=== PATIENT | male | born 1995 | race Caucasian/White ===

== ENCOUNTER 2017-12-08 18:25 | Emergency (ER) | payer OTHER ==
[~2017-12-08] VITALS: Ht 182.9 cm; Wt 81.1 kg
[~2017-12-08 18:25] MED LIST: AMPH20CA3 PO; SERT25TA PO
[2017-12-08 18:28] VITALS: TEMP 36.8; Ht 182.9 cm; Wt 81.1 kg
[2017-12-08] MEDS ORDERED: ACETAMINOPHEN 500 MG TAB PO STA (18:56)
[2017-12-08] MEDS ORDERED: KETOROLAC TROMETHAMINE 60 MG/2 ML VIAL IM ONE (19:00)
[2017-12-08] MEDS ORDERED: SERT-234 PO (19:01)
[2017-12-08] MEDS ORDERED: AMPH30CA3 PO (19:01)
--- NOTE | 2017-12-08 19:07 | EMERGENCY ROOM VISIT NOTE ---
History First contact with patient: 18:38 Chief Complaint: BACK PAIN Stated Complaint: LOWER BACK PAIN- History of Present Illness The patient is a 22 year old male who presents to the Emergency Room with complaints of low back pain radiated down his legs right greater than left since yesterday. The patient was lifting a heavy object at work with a twisting motion when he felt intense pain in his back. The pain has been persistent since. He denies any history of back problems. He has tried ibuprofen with minimal relief of his symptoms. He denies any urinary or bowel incontinence. No saddle paresthesias. No numbness, tingling or weakness in the legs. He denies any other injuries. Review of Systems 6 system review negative. Please see pertinent positives in the history of present illness section. Past Medical/Surgical History Depression, bipolar disorder Social History Smoking Status: Current Every Day Smoker Drug Use: none Marital Status: single Housing Status: lives with family Occupation Status: employed Current/Historical Medications Scheduled Amphetamine-Dextroamphetamine 30MG (Adderall Xr 30MG), 30 MG PO DAILY Cyclobenzaprine Hcl (Flexeril), 10 MG PO TID Methylprednisolone (Medrol Dosepak), 0 PO DAILY Sertraline (Zoloft), 150 MG PO DAILY Scheduled PRN Hydrocodone/Acetaminophen 5MG/325MG ([place] 5MG/325MG), 1-2 TABLET PO Q4H PRN for Pain Physical Exam Vital Signs Date Time Temp Pulse Resp B/P (MAP) Pulse Ox O2 Delivery O2 Flow Rate FiO2 12/08/17 20:44 81 18 133/81 99 12/08/17 19:40 101 20 147/77 100 Room Air 12/08/17 18:28 36.8 119 17 138/78 98 Room Air Physical Exam VITALS: Vitals are noted on the nurse's note and reviewed by myself. Vital signs stable. GENERAL: 22-year-old male, in moderate discomfort, SKIN: The skin was without rashes, erythema, edema, or bruising. HEAD: Normocephalic atraumatic. NECK: Supple without nuchal rigidity. . Cervical spine is nontender. HEART: Regular rate and rhythm without murmurs gallops or rubs. LUNGS: Clear to auscultation bilaterally without wheezes, rales or rhonchi. No accessory muscle use. MUSCULOSKELETAL: Mild tenderness over the lumbar spinous processes. Tenderness over the SI joints bilaterally. Muscle spasm noted at the right paraspinous muscle in the lumbar area. Negative straight leg test bilaterally. Sensation in the lower extremities is intact. NEURO: Patient was alert and oriented to person place and time. Normal sensation to touch. No focal neurological deficits. Medical Decision & Procedures ER Provider Diagnostic Interpretation: Lumbar spine films IMPRESSION: Unremarkable lumbar spine radiographs. Electronically signed by: Baltazar Mackenzie M.D. 12/08/2017 7:30 PM Dictated Date/Time: 12/08/2017 7:26 PM The status of this report is Signed. Draft = Not yet reviewed or approved by Radiologist. Signed = Reviewed and approved by Radiologist. <AttendingPhy></AttendingPhy> <FamilyPhy>No Doctor, Assigned</FamilyPhy> < PrimaryPhy>No Doctor, Assigned</PrimaryPhy> <UnitNumber>[id number]</UnitNumber> <VisitNumber>[id number]</VisitNumber> <PatientName> Medications Administered Medications (Trade) Dose Ordered Sig/Nj Route Start Time Stop Time Status Last Admin Dose Admin Acetaminophen (Tylenol Tab) 1,000 mg NOW STAT PO 12/08/17 18:56 12/08/17 18:58 DC 12/08/17 19:39 1,000 MG Acetaminophen/ Hydrocodone Bitart ([place]emo 5/325mg Home Pack) 1 homepack UD ONCE PO 12/08/17 20:30 12/08/17 20:31 DC 12/08/17 20:41 1 HOMEPACK ED Course The patient was seen and examined He was medicated with Tylenol and Motrin Imaging was performed and reviewed Upon her evaluation, the patient was resting comfortably. We discussed the results of his workup. He voiced understanding, and was comfortable being discharged home. Discharge instructions were reviewed, and he was discharged in good condition Medical Decision Differential diagnosis: Spine fracture, ligamentous injury, subluxation, spondylolisthesis, spondylosis, herniated disc, contusion, muscle spasm This patient is a 22-year-old male that presents to emergency department with low back pain radiating down his right greater than left leg since yesterday. The injury occurred at work with a twisting motion while lifting a heavy object. On exam, he mild tenderness over the lumbar spinous processes and SI joint bilaterally. He is neurovascularly intact. I do not suspect cauda equina syndrome. Imaging was unremarkable. I believe he would benefit from a short course of narcotics, steroids and muscle relaxants. He was also given a few days off of work to rest. The patient seemed comfortable with this plan. He was encouraged to follow up with either his primary care physician or employee health within the next 3-5 days for recheck. He agrees to return to the emergency department with any new, worsening or concerning symptoms. This chart was completed in part utilizing [employer] Speech Voice Recognition software. Attempts were made to minimize the grammatical errors, random word insertions, pronoun errors and incomplete sentences. Any formal questions or concerns about the content, text or information contained within the body of this dictation should be directly addressed to the provider for clarification. Medication Reconcilliation Current Medication List: was personally reviewed by me Blood Pressure Screening Patient's blood pressure: Normal blood pressure Impression Primary Impression: Low back pain Departure Information Dispostion Home / Self-Care Condition GOOD Prescriptions Methylprednisolone (MEDROL DOSEPAK) 4 Mg Brennon 0 PO DAILY, #1 PKT Prov: Jerica Mckeon PA-C 12/08/17 Cyclobenzaprine Hcl (FLEXERIL) 10 Mg Tab 10 MG PO TID for Muscle Spasms, #20 TAB Prov: Jerica Mckeon PA-C 12/08/17 Hydrocodone/Acetaminophen 5MG/325MG (Onemo 5MG/325MG) Tab 1-2 TABLET PO Q4H Y for Pain, #15 TAB For Initial Treatment Prov: Jerica Mckeon PA-C 12/08/17 Referrals No Doctor, Assigned (PCP) Patient Instructions ED Low Back Pain Injury, My [facility] Additional Instructions Please rest for at least the next 2-3 days. No strenuous activity or lifting. Take the entire course of steroids. Ibuprofen 600 mg every 6 hours as needed for pain. Onemo 1-2 tabs every 4 hours for severe pain. Do not drink alcohol or drive while taking this medication. This may be taken with ibuprofen, but avoid Tylenol. Flexeril every 8 hours as needed for muscle spasms. Please do not drink alcohol or drive or taking this medication. Ice over the lower back over the next 48 hours. Lying on a hard surface may help with the pain. Return to the emergency department if you have any of the following symptoms: -Problems with urination -Weakness in your legs -Chest pain -Shortness of breath -Worsening pain Please follow-up with your primary care physician next 2-3 days. Work Instructions Return To Work: 2 days
--- NOTE | 2017-12-08 19:32 | DIAGNOSTIC IMAGING REPORT ---
L-SPINE MIN 4 VIEWS ROUTINE CLINICAL HISTORY: low back pain down R>L leg COMPARISON: None FINDINGS: Alignment of the lumbar spine is anatomic. Vertebral body heights are maintained. There is no fracture or suspicious osseous lesion. The disc spaces are preserved. Sacroiliac joints are intact. Bowel gas pattern is normal. IMPRESSION: Unremarkable lumbar spine radiographs. Electronically signed by: Baltazar Mackenzie M.D. 12/08/2017 7:30 PM Dictated Date/Time: 12/08/2017 7:26 PM
[2017-12-08] MEDS ORDERED: CYCL10TA6 PO (20:28)
[2017-12-08] MEDS ORDERED: HYDR-5688 PO (20:28)
[2017-12-08] MEDS ORDERED: METH4PAK PO (20:28)
[2017-12-08] MEDS ORDERED: NORCO 5/325MG HOME PACK PO ONE (20:30)
[2017-12-08 20:44] VITALS: BP 133/81; PULSE 81; O2SAT 99
== END 2017-12-08 20:45 | disposition home or self-care (01) ==
LOC: C.EDB 18:28 → C.EDD 20:45
DX: M54.5 Low back pain (principal); X50.0XXA Overexertion from strenuous movement or load, initial encounter; Y99.0 Civilian activity done for income or pay; F32.9 Major depressive disorder, single episode, unspecified; F31.9 Bipolar disorder, unspecified; F17.200 Nicotine dependence, unspecified, uncomplicated

== ENCOUNTER 2017-12-19 00:28 | Emergency (ER) | payer OTHER ==
[~2017-12-19] VITALS: Ht 182.9 cm; Wt 81.6 kg
[~2017-12-19 00:28] MED LIST changes: -AMPH20CA3 PO; +AMPH30CA3 PO; +CYCL10TA6 PO; +HYDR-5688 PO; +METH4PAK PO; +SERT-234 PO; -SERT25TA PO
[2017-12-19 00:31] VITALS: TEMP 37; Ht 182.9 cm; Wt 81.6 kg
[2017-12-19] MEDS ORDERED: CEFTRIAXONE SOD INJ 1 GM ADDVIAL IV STA (00:40)
[2017-12-19] MEDS ORDERED: FAMOTIDINE 20MG/5ML IV PUSH IV STA (00:40)
[2017-12-19] MEDS ORDERED: DiphenhydrAMINE HCL 50 MG/ML VIAL IV STA (00:40)
[2017-12-19] MEDS ORDERED: KETOROLAC TROMETHAMINE 30 MG/ML VIAL IV STA (00:40)
[2017-12-19] MEDS ORDERED: DIPHTHERIA/TETANUS/PERTUSSIS 0.5 ML SYR/VIAL IM. ONE (01:00)
[2017-12-19 01:12] LABS: BASO % 0.2 %; BASO ABS # 0.03 K/uL (0-0.2); EOS % 1.6 %; EOS ABS # 0.22 K/uL (0-0.5); HEMATOCRIT 46.6 % (42-52); HEMOGLOBIN 15.8 g/dL (14.0-18.0); IG# 0.04 K/uL (0.00-0.02); LYMPH % 8.3 %; LYMPH ABS # 1.13 K/uL (1.2-3.4); MEAN CORPUSCULAR HEMOGLOBIN 30.5 pg (25-34); MEAN CORPUSCULAR HGB CONC 33.9 g/dl (32-36); MEAN PLATELET VOLUME 8.8 fL (7.4-10.4); MONO % 7.8 %; MONO ABS # 1.06 K/uL (0.11-0.59); NEUT % 81.8 %; NEUT ABS # 11.09 K/uL (1.4-6.5); PLATELET COUNT 241 K/uL (130-400); RED CELL DISTRIBUTION WIDTH SD 46.3 fL (36.4-46.3); WHITE BLOOD COUNT 13.57 K/uL (4.8-10.8)
[2017-12-19 01:29] LABS: CALCIUM 8.7 mg/dl (8.5-10.1); CREATININE 1.05 mg/dl (0.60-1.40); POTASSIUM 3.9 mmol/L (3.5-5.1)
[2017-12-19 02:46] VITALS: BP 129/63; PULSE 66; O2SAT 98
[2017-12-19] MEDS ORDERED: SULF800T23 PO (03:13)
[2017-12-19] MEDS ORDERED: BENADRYL HOME PACK 25 MG TAB PO ONE (03:15)
[2017-12-19] MEDS ORDERED: SEPTRA DS HOME PACK 1 EA VIAL PO ONE (03:15)
--- NOTE | 2017-12-19 04:22 | EMERGENCY ROOM VISIT NOTE ---
History First contact with patient: 00:35 Chief Complaint: SWELLING TO EXTREMITY Stated Complaint: BOTH ARMS SWOLLEN - RIGHT WORSE THAN LEFT History of Present Illness The patient is a 22 year old male who presents to the Emergency Room with complaints of bilateral arm pain and swelling for the past few days that was at [facility] yesterday and was started on Keflex and Zithromax for possible infection. Patient is unsure what is biting his arms. Patient states he has multiple bite otero with surrounding erythema. Patient denies chest pain , dyspnea, fever, chills, numbness, tingling, abdominal pain, cold symptoms. Tetanus is not current. Patient adamantly denies IV drug abuse. Review of Systems An 10 system review of systems was completed with positives and pertinent negatives listed in the HPI. Past Medical/Surgical History None Social History Smoking Status: Never Smoker Drug Use: none Marital Status: single Housing Status: lives with family Occupation Status: employed Current/Historical Medications Scheduled Amphetamine-Dextroamphetamine 30MG (Adderall Xr 30MG), 30 MG PO DAILY Sertraline (Zoloft), 150 MG PO DAILY Sulfa/Trimethoprim (Bactrim Ds 800MG/160MG), 1 TAB PO BID Scheduled PRN Hydrocodone/Acetaminophen 5MG/325MG ([place] 5MG/325MG), 1-2 TABLET PO Q4H PRN for Pain Physical Exam Vital Signs Date Time Temp Pulse Resp B/P (MAP) Pulse Ox O2 Delivery O2 Flow Rate FiO2 12/19/17 02:46 66 16 129/63 98 Room Air 12/19/17 00:31 37.0 90 18 157/76 99 Room Air Physical Exam VITALS: Vitals are noted on the nurse's note and reviewed by myself. Vital signs stable. GENERAL: Pleasant male, in no acute distress, nondiaphoretic, well-developed well-nourished. SKIN: Capillary reflex less than 2 seconds. Bilateral arms with multiple insect bites with surrounding erythema concerning for possible allergic reaction. Patient also has been scratching at the areas and most likely has a secondary cellulitis from this. No lymphangitis. No axillary lymph node enlargement. HEENT: Normocephalic. PERRLA. EOMI. Nares patent. Mucous membranes moist. Neck is supple without nuchal rigidity. HEART: Regular rate and rhythm without murmurs gallops or rubs. LUNGS: Clear to auscultation bilaterally without wheezes, rales or rhonchi. No retractions or accessory muscle use. ABDOMEN: Positive bowel sounds x 4. Normal tympanic percussion. Soft, nontender, without masses or organomegaly. Patrick sign negative. No guarding or rebound tenderness. MUSCULOSKELETAL: No gross musculoskeletal defects. No pedal edema. No calf tenderness. NEURO: Patient was alert and oriented to person place and time. Normal sensation to light and sharp touch. No focal neurological deficits. Medical Decision & Procedures Laboratory Results 12/19/17 01:03 Red Blood Count 5.18, Mean Corpuscular Volume 90.0, Mean Corpuscular Hemoglobin 30.5, Mean Corpuscular Hemoglobin Concent 33.9, Mean Platelet Volume 8.8, Neutrophils (%) (Auto) 81.8, Lymphocytes (%) (Auto) 8.3, Monocytes (%) (Auto) 7.8, Eosinophils (%) (Auto) 1.6, Basophils (%) (Auto) 0.2, Neutrophils # (Auto) 11.09, Lymphocytes # (Auto) 1.13, Monocytes # (Auto) 1.06, Eosinophils # (Auto) 0.22, Basophils # (Auto) 0.03 12/19/17 01:03 Test 12/19/17 01:03 White Blood Count 13.57 K/uL (4.8-10.8) Red Blood Count 5.18 M/uL (4.7-6.1) Hemoglobin 15.8 g/dL (14.0-18.0) Hematocrit 46.6 % (42-52) Mean Corpuscular Volume 90.0 fL (80-100) Mean Corpuscular Hemoglobin 30.5 pg (25-34) Mean Corpuscular Hemoglobin Concent 33.9 g/dl (32-36) Platelet Count 241 K/uL (130-400) Mean Platelet Volume 8.8 fL (7.4-10.4) Neutrophils (%) (Auto) 81.8 % Lymphocytes (%) (Auto) 8.3 % Monocytes (%) (Auto) 7.8 % Eosinophils (%) (Auto) 1.6 % Basophils (%) (Auto) 0.2 % Neutrophils # (Auto) 11.09 K/uL (1.4-6.5) Lymphocytes # (Auto) 1.13 K/uL (1.2-3.4) Monocytes # (Auto) 1.06 K/uL (0.11-0.59) Eosinophils # (Auto) 0.22 K/uL (0-0.5) Basophils # (Auto) 0.03 K/uL (0-0.2) RDW Standard Deviation 46.3 fL (36.4-46.3) RDW Coefficient of Variation 14.0 % (11.5-14.5) Immature Granulocyte % (Auto) 0.3 % Immature Granulocyte # (Auto) 0.04 K/uL (0.00-0.02) Anion Gap 8.0 mmol/L (3-11) Est Creatinine Clear Calc Drug Dose 123.2 ml/min Estimated GFR () 117.9 Estimated GFR (Non- 101.7 BUN/Creatinine Ratio 10.1 (10-20) Calcium Level 8.7 mg/dl (8.5-10.1) Medications Administered Medications (Trade) Dose Ordered Sig/Nj Route Start Time Stop Time Status Last Admin Dose Admin Ceftriaxone Sodium (Rocephin Inj) 1 gm NOW STAT IV 12/19/17 00:40 12/19/17 00:45 DC 12/19/17 01:01 1 GM Diphenhydramine HCl (Benadryl Inj) 50 mg NOW STAT IV 12/19/17 00:40 12/19/17 00:45 DC 12/19/17 01:02 50 MG Famotidine (Pepcid 20mg Iv Push) 20 mg ONE STAT IV 12/19/17 00:40 12/19/17 00:45 DC 12/19/17 01:02 20 MG Ketorolac Tromethamine (Toradol Inj) 30 mg NOW STAT IV 12/19/17 00:40 12/19/17 00:45 DC 12/19/17 01:01 30 MG Diphenhydramine HCl (diphenhydrAMINE 25MG HOME PACK) 1 homepack UD ONCE PO 12/19/17 03:15 12/19/17 03:16 DC 12/19/17 03:15 1 HOMEPACK Trimethoprim/ Sulfamethoxazole (Sulfameth/ Trimeth Ds 800/ 160MG Home Pack) 1 homepack UD ONCE PO 12/19/17 03:15 12/19/17 03:16 DC 12/19/17 03:15 1 [facility] ED Course Prior records reviewed and summarized as above. Triage Nursing notes reviewed. The patient's history was concerning for swelling and redness of the skin. Differential diagnosis: Etiologies such as allergic reaction, infected insect bite, cellulitis, abscess , MRSA infection, DVT, necrotizing fasciitis, dermatitis, drug eruption, as well as others were entertained.. Physical examination: As above ER treatment provided: Benadryl, Pepcid, Rocephin On reassessment the patient felt better. Diagnostics interpreted by me: The labs revealed leukocytosis, hyperglycemia without DKA Imaging studies: Ultrasound negative for DVT US RIGHT UPPER EXTREMITY: Irregular hypoechoic areas with surrounding increased vascularity in both regions of interest. Hypoechoic area along the right anterior forearm measures 1.7 x 0.8 x 1.1 cm and region posterior to the elbow measures 1.19 x 0.8 x 0.8 cm. Findings are suspicious for fluid collections related to phlegmon or early abscess although prominent focal edema in the absence of infection is not excluded. Recommend clinical correlation and may obtain follow-up or additional imaging as clinically warranted. Radiologist: Isela Munoz MD This appears to be multiple insect bites with mild allergic reaction and secondary cellulitis from excoriation. Patient's arms were nearly 100% back to normal after being medicated as above. Most of the redness had resolved. Patient felt much better. He is advised to take antihistamines and antibiotics as directed. He is advised to stop the Zithromax. He was advised to avoid scratching at the area. He is advised to follow-up family here in a few days or here in the ER sooner for fevers, spreading infection, vomiting, worsening signs or symptoms or as needed. By the evaluation outlined above emergent etiologies such as abscess, necrotizing fasciitis, DVT, as well as others were deemed relatively unlikely. The pt informed about the findings as listed above. All questions were answered and pleased with the treatment. Return instructions were outlined and the patient was discharged in stable condition. Outpatient prescription management: Bactrim. Patient is already on Keflex Referral: The patient was referred back to [] primary care physician for follow-up in 2 to 3 days for a recheck of the current condition. Medical Decision as above Medication Reconcilliation Current Medication List: was personally reviewed by me Blood Pressure Screening Patient's blood pressure: Normal blood pressure Impression Primary Impression: Insect bites of multiple sites, infected Additional Impression: Allergic reaction to insect sting Departure Information Dispostion Home / Self-Care Condition GOOD Prescriptions Sulfa/Trimethoprim (Bactrim Ds 800MG/160MG) Tab 1 TAB PO BID for 9 Days, #18 TAB Prov: Génesis Jarrett PA-C 12/19/17 Forms WORK / SCHOOL INSTRUCTIONS, HOME CARE DOCUMENTATION FORM, IMPORTANT VISIT INFORMATION Patient Instructions My [facility], ED Bite Sting Insect Gen Allergic React, ED Sting Bite Insect Infec Additional Instructions DO NOT drive, drink alcohol, operate machinery, or perform dangerous activities today. You were given medications in the ER that can affect your ability to safely function or operate a vehicle. Stop the Zithromax. Continue Keflex Cephalexin(Keflex) 500mg: Take one pill four times daily for 10 days for your skin infection. All antibiotics can cause diarrhea. If this occurs and you feel worse or it does not resolve in 1-2 days follow up with your doctor or return to the Emergency Department as this could be signs of serious underlying problems. Any medication can cause an allergic reaction, stop the pills immediately and return to the ER for rash, hives, breathing difficulties, or swelling. Begin Bactrim Trimethoprim-Sulfamethoxazole(Bactrim DS): Take one pill twice daily for 10 days for your skin infection. All antibiotics can cause diarrhea. If this occurs and you feel worse or it does not resolve in 1-2 days follow up with your doctor or return to the Emergency Department as this could be signs of serious underlying problems. Any medication can cause an allergic reaction, stop the pills immediately and return to the ER for rash, hives, breathing difficulties, or swelling. Ibuprofen(Motrin, Advil) may be used for fever or pain. Use 600mg every six hours as needed. Take with food. Avoid using more than 2400mg in a 24 hour period. Do not use 2400mg per day for more than three consecutive days without physician direction. Prolonged inappropriate use can lead to stomach upset or ulcers. (AND/OR) Acetaminophen(Tylenol) may be used for fever or pain. Use 1000mg every six hours as needed. Avoid using more than 4000mg in a 24 hour period. Warm compresses to the affected area 4 times daily for 15-20 minutes. Rest and drink plenty of fluids. Continue current medications. Return to the ER for severe pain, persistent fevers, spreading redness, or any worsening of your condition. Follow up with your primary physician within 2-3 days for a recheck of the current condition. You should also take Benadryl and Zantac for your allergic reaction to the bites. Diphenhydramine(Benadryl) 25mg: use 25 to 50 mg every six hours for swelling, itching, or hives. This medication is sedating and will cause drowsiness. Avoid alcohol, operating machinery or dangerous equipment, working on ladders or roofs, DRIVING, or situations where being under the influence may be dangerous. Zantac 75: Take two pills twice a day along with Benadryl as needed for swelling , itching, or hives. Most people know this for its affect on the stomach, but it also acts similar to, but less potent than Benadryl for allergic reactions. Both the Benadryl and the Zantac are available [id number]. Problem Qualifiers Additional Impression: Allergic reaction to insect sting Encounter type: initial encounter Injury intent: accidental or unintentional Qualified Codes: T63.481A - Toxic effect of venom of other arthropod, accidental (unintentional), initial encounter
--- NOTE | 2017-12-19 06:55 | DIAGNOSTIC IMAGING REPORT ---
BILATERAL UPPER EXTREMITY VENOUS DOPPLER ULTRASOUND CLINICAL HISTORY: Bilateral arm swelling. COMPARISON STUDY: No previous studies for comparison. FINDINGS: The bilateral internal jugular, subclavian, axillary, brachial, basilic, radial, ulnar and cephalic veins are patent. No venous thrombus is identified within either upper extremity. IMPRESSION: No venous thrombus identified within either upper extremity. Electronically signed by: Baltazar Mackenzie M.D. 12/19/2017 6:54 AM Dictated Date/Time: 12/19/2017 6:53 AM
--- NOTE | 2017-12-19 07:13 | DIAGNOSTIC IMAGING REPORT ---
RIGHT FOREARM ULTRASOUND CLINICAL HISTORY: right arm swelling, ? abscess COMPARISON STUDY: None. FINDINGS: Subcutaneous edema within the mid right forearm with increased echogenicity within the subcutaneous fat and skin thickening. Regular hypoechoic area within the subcutaneous fat which measures 1.7 x 1.1 x 0.8 cm. There is a second irregular hypoechoic fluid collection measuring 1.9 x 0.8 x 0.8 cm. This is located at the posterior elbow. IMPRESSION: There are 2 small irregular fluid collections seen within the mid right forearm and posterior elbow as described above which may represent focal edema or developing abscesses. Electronically signed by: Alfred King M.D. 12/19/2017 7:12 AM Dictated Date/Time: 12/19/2017 7:10 AM
== END 2017-12-19 03:27 | disposition home or self-care (01) ==
LOC: C.EDB 00:29 → C.EDA 03:27
DX: S40.861A Insect bite (nonvenomous) of right upper arm, initial encounter (principal); S40.862A Insect bite (nonvenomous) of left upper arm, initial encounter; T63.481A Toxic effect of venom of other arthropod, accidental (unintentional), initial encounter; X58.XXXA Exposure to other specified factors, initial encounter

== ENCOUNTER 2019-06-06 08:24 | Observation (INO) ==
[2019-06-06] MEDS ORDERED: FAMOTIDINE 20MG IV PUSH 20 MG/5 ML SYR IV STA (08:44)
[2019-06-06] MEDS ORDERED: ONDANSETRON INJ 2 MG/ML 2 ML VIAL IV STA (08:44)
[2019-06-06] MEDS ORDERED: KETOROLAC 30 MG/ML VIAL IV STA (08:44)
[2019-06-06] MEDS ORDERED: SODIUM CHLORIDE 0.9% 1000ML 1,000 ML IV SCH ×2 (08:45)
[2019-06-06 09:15] LABS: Basophils # (auto) 0.01 K/uL (0-0.2); Basophils % (auto) 0.1 %; Eosinophils # (auto) 0.53 K/uL (0-0.5); Eosinophils % (auto) 4.3 %; Hematocrit (blood only) 53.1 % (42-52); Hemoglobin 18.1 g/dL (14.0-18.0); Immature Granulocytes # (auto) 0.03 K/uL (0.00-0.02); Immature Granulocytes % (auto) 0.2 %; Lymphocytes % (auto) 11.3 %; Mean Corpuscular Hgb Conc 34.1 g/dL (32-36); Mean Corpuscular Volume 86.8 fL (80-100); Mean Platelet Volume 9.4 fL (7.4-10.4); Monocytes # (auto) 0.71 K/uL (0.11-0.59); Monocytes % (auto) 5.7 %; Neutrophils # (auto) 9.74 K/uL (1.4-6.5); Neutrophils % (auto) 78.4 %; Platelet Count 319 K/uL (130-400); RDW Coefficient of Variation 14.4 % (11.5-14.5); RDW Standard Deviation 45.7 fL (36.4-46.3); Red Blood Count 6.12 M/uL (4.7-6.1); White Blood Count 12.42 K/uL (4.8-10.8)
--- NOTE | 2019-06-06 09:18 | Emergency Department Note ---
History of Present Illness General Chief complaint: Abdominal Pain Stated complaint: STOMACH PROBLEM Time Seen by Provider: 06/06/19 08:33 History of Present Illness Maximum Pain Intensity: 5 This is a 24-year-old male that presents to the emergency department via private vehicle accompanied by mother with complaints of "stomach problems". The patient states that he began with abdominal pain yesterday and was seen at the [facility] and had an abdominal CT performed without contrast of the abdomen and pelvis and was sent here for further evaluation and management. He was doing well and was discharged home but acutely at 2 AM overnight began with abdominal pain, vomiting that happened upon awakening. He states that the pain was so severe and much worse than yesterday. He describes as being 10 times worse than yesterday. He describes the pain is sharp. He rates the pain as a 5/10. He notes that he was doubled over in pain and could not stand up because of the epigastric discomfort. Of additional history note, he states that he did drink Everclear/alcohol on Tuesday of this past week. Home Medications Home Medications Medication Instructions Recorded Confirmed Type pantoprazole [Protonix] 20 mg PO HS 28 Days #28 tab 06/05/19 06/06/19 Rx Allergies Allergy/AdvReac Type Severity Reaction Status Date / Time adhesive Allergy Unknown RASH Verified 06/06/19 09:15 Penicillins Allergy Unknown Unknown Verified 06/06/19 09:15 Past Med/Surg History Medical History Elevated lipase (Acute) Acute gastroenteritis (Acute) ADHD (Chronic) Depression (Chronic) Surgical History History of knee surgery Family History Other No significant family history Social History Preferred Language: Indonesian Communication Ability: Effective Visual Impairment: No Limitations Hearing Ability: Normal [employer] Required: No Beliefs That Will Affect Care: None marital status: Single Current Living Situation: Family current occupational status: employed Other Information That Helps Us Care for You: No Feels Safe at Home: Yes Safety Concerns: Feels Safe At This Time Smoking Status: Current every day smoker Tobacco Type: cigarettes and smokeless tobacco Do You Dip or Chew Tobacco: Yes Second Hand Exposure: No Tobacco Cessation Education Requested by Patient: No Hx Alcohol Use: Yes Alcohol type: beer and hard liquor Hx Substance Use: No Review of Systems A total of 10 systems reviewed and were otherwise negative Physical Exam Vital Signs Vital Signs - 24 hr 06/06/19 08:26 06/06/19 08:32 06/06/19 08:48 Temperature 36.4 C L Temperature Source Oral Sepsis Recent Fever Within 48 Hours No Sepsis New/Unexplained Change in Mental Status No Sepsis Action Taken by Nursing No Action Required Pulse Rate 92 H 53 L 58 L Pulse Rate [Apical] Pulse Rate from SpO2 Sensor 53 L 57 L Respiratory Rate 16 12 14 Respiratory Effort / Characteristics Non-Labored Spontaneous Respiratory Depth Normal Blood Pressure 149/76 H 152/84 H Blood Pressure [Right Arm] Blood Pressure Mean 100 106 Blood Pressure Mean [Right Arm] Blood Pressure Position Sitting Pulse Oximetry 100 99 100 Oxygen Delivery Method Room Air 06/06/19 09:00 06/06/19 09:30 06/06/19 10:00 Temperature Temperature Source Sepsis Recent Fever Within 48 Hours Sepsis New/Unexplained Change in Mental Status Sepsis Action Taken by Nursing Pulse Rate 57 L Pulse Rate [Apical] Pulse Rate from SpO2 Sensor 70 52 L 56 L Respiratory Rate Respiratory Effort / Characteristics Respiratory Depth Blood Pressure Blood Pressure [Right Arm] Blood Pressure Mean Blood Pressure Mean [Right Arm] Blood Pressure Position Pulse Oximetry 100 100 99 Oxygen Delivery Method 06/06/19 10:25 06/06/19 10:29 06/06/19 10:31 Temperature Temperature Source Sepsis Recent Fever Within 48 Hours Sepsis New/Unexplained Change in Mental Status Sepsis Action Taken by Nursing Pulse Rate 72 63 Pulse Rate [Apical] 73 Pulse Rate from SpO2 Sensor 75 75 Respiratory Rate 16 14 18 Respiratory Effort / Characteristics Respiratory Depth Blood Pressure 114/79 Blood Pressure [Right Arm] 114/79 Blood Pressure Mean 90 Blood Pressure Mean [Right Arm] 90 Blood Pressure Position Pulse Oximetry 100 100 99 Oxygen Delivery Method Room Air 06/06/19 10:53 06/06/19 11:00 06/06/19 11:30 Temperature Temperature Source Sepsis Recent Fever Within 48 Hours Sepsis New/Unexplained Change in Mental Status Sepsis Action Taken by Nursing Pulse Rate 58 L 57 L 57 L Pulse Rate [Apical] Pulse Rate from SpO2 Sensor 59 L 56 L 56 L Respiratory Rate 13 14 11 L Respiratory Effort / Characteristics Respiratory Depth Blood Pressure 121/78 124/77 133/85 Blood Pressure [Right Arm] Blood Pressure Mean 92 92 101 Blood Pressure Mean [Right Arm] Blood Pressure Position Pulse Oximetry 100 100 100 Oxygen Delivery Method 06/06/19 11:52 06/06/19 12:00 06/06/19 12:52 Temperature Temperature Source Sepsis Recent Fever Within 48 Hours Sepsis New/Unexplained Change in Mental Status Sepsis Action Taken by Nursing Pulse Rate 77 67 65 Pulse Rate [Apical] Pulse Rate from SpO2 Sensor 68 58 L 65 Respiratory Rate 14 21 Respiratory Effort / Characteristics Respiratory Depth Blood Pressure 150/95 H 140/96 138/78 Blood Pressure [Right Arm] Blood Pressure Mean 113 110 98 Blood Pressure Mean [Right Arm] Blood Pressure Position Pulse Oximetry 100 96 99 Oxygen Delivery Method 06/06/19 13:00 06/06/19 13:30 06/06/19 14:00 Temperature Temperature Source Sepsis Recent Fever Within 48 Hours Sepsis New/Unexplained Change in Mental Status Sepsis Action Taken by Nursing Pulse Rate 63 72 63 Pulse Rate [Apical] Pulse Rate from SpO2 Sensor 59 L 70 64 Respiratory Rate 10 L 12 Respiratory Effort / Characteristics Respiratory Depth Blood Pressure 134/75 134/66 Blood Pressure [Right Arm] Blood Pressure Mean 94 88 Blood Pressure Mean [Right Arm] Blood Pressure Position Pulse Oximetry 100 98 99 Oxygen Delivery Method 06/06/19 14:30 06/06/19 15:00 06/06/19 15:30 Temperature Temperature Source Sepsis Recent Fever Within 48 Hours Sepsis New/Unexplained Change in Mental Status Sepsis Action Taken by Nursing Pulse Rate 74 63 65 Pulse Rate [Apical] Pulse Rate from SpO2 Sensor 73 64 Respiratory Rate 15 11 L 13 Respiratory Effort / Characteristics Respiratory Depth Blood Pressure 131/61 120/63 Blood Pressure [Right Arm] Blood Pressure Mean 84 82 Blood Pressure Mean [Right Arm] Blood Pressure Position Pulse Oximetry 98 99 Oxygen Delivery Method VITAL SIGNS - Vital signs and nursing notes were reviewed. Stable and afebrile. GENERAL -24-year-old male appearing his stated age who is in no acute distress. Communicates well with provider and answers questions appropriately. SKIN - Without rashes. No meningeal or petechial rash. HEAD - NC/AT. EYES - PERRL with EOMI bilaterally. Sclera anicteric. EARS - No deformities of external structures noted on gross examination bilaterally. NOSE - Midline and without cyanosis. No epistaxis or purulent drainage noted. MOUTH/OROPHARYNX - Without perioral cyanosis. NECK - Neck with FROM. Supple to palpation. No lymphadenopathy noted. No nuchal rigidity. LUNGS - Chest wall symmetric without accessory muscle use, intercostals retractions, or central cyanosis. Normal vesicular breath sounds CTA B/L. No wheezes, rales, or rhonchi appreciated. CARDIAC - RRR with S1/S2. No murmur, rubs, or gallops appreciated. ABDOMEN - Abdominal contour normal without pulsations or visible masses. BS normoactive all four quadrants. Minimal epigastric discomfort noted on exam. No palpable masses, hepatosplenomegaly, or ascites noted. EXTREMITIES - No clubbing or peripheral cyanosis. No pretibial edema present. +5/5 strength noted in UE/LE bilaterally. NEUROLOGIC - Cranial nerves II through XII grossly intact. PSYCH - A&Ox3 and cooperates fully with examiner. Pt is very pleasant and interacts well with examiner. Course Administered Medications Sodium Chloride (Nss 1000ml) 1,000 mls @ 100 mls/hr IV .Q10H THAI Stop: 07/06/19 18:29 Last Admin: 06/06/19 19:07 Dose: 100 mls/hr Documented by: [id number] Ioversol (Optiray 320 100ml) 94 ml IV ONCE PRN PRN Reason: Interaction Checking Stop: 06/10/19 12:35 Last Admin: 06/06/19 12:36 Dose: 94 ml Documented by: [id number] Sucralfate (Carafate) 1 gm PO QID THAI Stop: 07/06/19 18:29 Last Admin: 06/06/19 19:26 Dose: 1 gm Documented by: [id number] Discontinued Medications Famotidine (Pepcid 20mg Iv Push) 20 mg in 5 mls @ 2.5 mls/min IV NOW STA Stop: 06/06/19 08:45 Last Admin: 06/06/19 09:05 Dose: 2.5 mls/min Documented by: [id number] Sodium Chloride (Nss 1000ml) 1,000 mls @ 999 mls/hr IV .Q1H1M THAI Stop: 06/06/19 09:45 Last Infusion: 06/06/19 10:09 Dose: 0 mls/hr Documented by: [id number] Admin: 06/06/19 09:05 Dose: 999 mls/hr Documented by: [id number] Sodium Chloride (Nss 1000ml) 1,000 mls @ 999 mls/hr IV .Q1H1M THAI Stop: 06/06/19 09:45 Last Infusion: 06/06/19 11:46 Dose: 0 mls/hr Documented by: [id number] Admin: 06/06/19 10:32 Dose: 999 mls/hr Documented by: [id number] Ketorolac Tromethamine (Toradol) 30 mg IV NOW STA Stop: 06/06/19 08:45 Last Admin: 06/06/19 09:06 Dose: 30 mg Documented by: [id number] Morphine Sulfate (Morphine Sulfate) 4 mg IV NOW STA Stop: 06/06/19 12:03 Last Admin: 06/06/19 12:08 Dose: 4 mg Documented by: [id number] Ondansetron HCl (Zofran) 4 mg IV NOW STA Stop: 06/06/19 08:45 Last Admin: 06/06/19 09:05 Dose: 4 mg Documented by: [id number] Medical Decision Making Laboratory Data Result diagrams: 06/06/19 09:00 06/06/19 09:00 Lab Results 06/06/19 06/06/19 06/06/19 Range/Units 09:00 09:00 11:50 WBC 12.42 H (4.8-10.8) K/uL RBC 6.12 H (4.7-6.1) M/uL Hgb 18.1 H (14.0-18.0) g/dL Hct 53.1 H (42-52) % MCV 86.8 (80-100) fL MCH 29.6 (25-34) pg MCHC 34.1 (32-36) g/dL RDW Std Deviation 45.7 (36.4-46.3) fL RDW Coeff of Kaylynn 14.4 (11.5-14.5) % Plt Count 319 (130-400) K/uL MPV 9.4 (7.4-10.4) fL Immature Gran % (Auto) 0.2 % Neut % (Auto) 78.4 % Lymph % (Auto) 11.3 % [place] % (Auto) 5.7 % Eos % (Auto) 4.3 % Baso % (Auto) 0.1 % Immature Gran # (Auto) 0.03 H (0.00-0.02) K/uL Neut # (Auto) 9.74 H (1.4-6.5) K/uL Lymph # (Auto) 1.40 (1.2-3.4) K/uL [place] # (Auto) 0.71 H (0.11-0.59) K/uL Eos # (Auto) 0.53 H (0-0.5) K/uL Baso # (Auto) 0.01 (0-0.2) K/uL Sodium 138 (136-145) mmol/L Potassium 3.9 (3.5-5.1) mmol/L Chloride 103 (98-107) mmol/L Carbon Dioxide 29 (21-32) mmol/L Anion Gap 6.0 (3-11) BUN 17 (7-18) mg/dl Creatinine 1.02 (0.6-1.4) mg/dl Est Cr Clr Drug Dosing 122.4 ml/min Est GFR ( Amer) 120.4 Est GFR (Non-Af Amer) 103.8 BUN/Creatinine Ratio 16.5 (10-20) Glucose 123 H (70-99) mg/dl Calcium 8.9 (8.5-10.1) mg/dl Magnesium 2.1 (1.8-2.4) mg/dl Total Bilirubin 0.5 (0.2-1) mg/dl AST 10 L (15-37) U/L ALT 14 (12-78) U/L Alkaline Phosphatase 99 (45-117) U/L Total Protein 7.8 (6.4-8.2) gm/dl Albumin 4.0 (3.4-5.0) gm/dl Globulin 3.8 (2.5-4.0) gm/dl Albumin/Globulin Ratio 1.1 (0.9-2) Lipase 1123 H (73-393) U/L Urine Color Yellow Urine Appearance Clear (Clear) Urine pH 7.0 (4.5-7.5) Ur Specific [place] 1.015 (1.000-1.030) Urine Protein Negative (Negative) Urine Glucose (UA) Negative (Negative) Urine Ketones Negative (Negative) Urine Blood Negative (Negative) Urine Nitrite Negative (Negative) Urine Bilirubin Negative (Negative) Urine Urobilinogen Negative (Negative) Ur Leukocyte Esterase Negative (Negative) Imaging Data Radiologist's Impression: CT abd pelvis oral and IV con CLINICAL HISTORY: Upper abdominal pain, nausea, vomiting, diarrhea. COMPARISON STUDY: None TECHNIQUE: The patient was scanned in a dynamic helical fashion during intravenous administration of 94 cc of Optiray 320. A dose lowering technique was utilized adhering to the principles of ALARA. CT DOSE: 448.94 mGycm FINDINGS: Lower chest: The heart is normal in size and configuration, without pericardial effusion. The lung bases and pleural spaces are clear. Liver: The contrast-enhanced liver is normal in size, contour, and attenuation. There is no intrahepatic biliary ductal dilatation. The hepatic veins and portal veins are patent. Gallbladder: Unremarkable. Spleen: Normal in size and attenuation. Pancreas: Unremarkable. Adrenal glands: Unremarkable. Kidneys: There is symmetric renal cortical enhancement. The kidneys are normal in size without hydronephrosis. Bowel: There are no transition zones to indicate bowel obstruction. There is no evidence of acute diverticulitis. The appendix appears normal as visualized. Peritoneum: There is trace free pelvic fluid. There is no free intraperitoneal air. Vasculature: The abdominal aorta is normal in course and caliber. Adenopathy: There is mild aortic lymphadenopathy. Pelvic viscera: The bladder, and pelvic viscera are unremarkable. Skeletal structures: No destructive osseous lesions are seen. IMPRESSION: 1. No evidence of bowel obstruction. No evidence of free air 2. No evidence of acute appendicitis. No evidence of acute diverticulitis. 3. Mild nonspecific para-aortic lymphadenopathy Electronically signed by: Justin Mendoza M.D. 06/06/2019 1:01 PM MDM Narrative Patient was seen and evaluated as above in room A2. Review was performed of nursing notes and vital signs. After obtaining a thorough history and physical examination the above work up was performed. His previous visit from yesterday was thoroughly reviewed. It appears at that time he was doing quite well and was discharged home and was even doing well throughout the night but at 2 AM awoke with abrupt onset of abdominal discomfort followed by vomiting and diarrhea. On my exam he does not appear to feel well but I will note he has minimal epigastric discomfort. This is likely that of a gastritis noting his progressiveness of symptoms. However, given the patient's subjective portion of the exam noting the tremendous amount of pain it was felt that a repeat CT should be discussed. After thorough discussion of benefit versus risk with the patient this was performed with the use of IV and oral contrast. Results as above. This was essentially negative other than some mild nonspecific periaortic lymphadenopathy which I recommended the patient follow-up for in the outpatient setting to ensure that this is not of concern. I will note that I do not believe this to be related to today's presentation. His CBC reveals a leukocytosis of 12.42 with elevated hemoglobin at 18.1 likely secondary to dehydration. The patient's lipase is also elevated at 1123 which is nearly 3 times that of normal. No evidence of kidney failure. Urinalysis is negative. Patient was given 2 L of fluid here, Pepcid IV, Zofran IV, Toradol IV and was feeling well. He was given morphine prior to the CT secondary to resurgence of pain. Benefit versus risk of inpatient versus outpatient management discussed. Given the patient's return visit to the emergency department noting increase of pain, vomiting as well as new symptoms associated with his elevated lipase do believe that perhaps he may benefit from inpatient management. Patient was in agreement. I discussed the findings with the attending physician as well as the hospitalist. Please refer to further documentation regarding his stay. In the evaluation and treatment of this patient, the following differential diagnoses were considered: ASC, [place], Pneumonia, GERD, Cholecystitis, Ascending Cholangitis, Cholydocholithiasis, Bowel Obstruction, PE, Amongst Others. Impression & Plan Acute gastroenteritis, Elevated lipase, Epigastric abdominal pain Discharge Plan Visit Data *Final* Discharge Date/Time: 06/06/19 17:48 Chief Complaint: Abdominal Pain Stated Complaint: STOMACH PROBLEM ED Provider: [facility] ED Midlevel Provider: Jass Hilliard Discharge Problem: Acute gastroenteritis, Elevated lipase, Epigastric abdominal pain Patient Disposition: Admitted As Inpatient Condition: Good Discharge Instructions Interventions: ED Discharge Assessment Last Done: 06/06/19 17:48
[2019-06-06 09:31] LABS: BUN Creatinine Ratio 16.5 (10-20); Calcium 8.9 mg/dl (8.5-10.1); Creatinine Clr Calc Pharmacy 122.4 ml/min; Est GFR (African American) 120.4; Est GFR (Non-African American) 103.8; Magnesium 2.1 mg/dl (1.8-2.4); Potassium 3.9 mmol/L (3.5-5.1)
[2019-06-06 09:34] LABS: Albumin Globulin Ratio 1.1 (0.9-2); Bilirubin,Total 0.5 mg/dl (0.2-1); Globulin 3.8 gm/dl (2.5-4.0); Total Protein 7.8 gm/dl (6.4-8.2)
[2019-06-06] MEDS ORDERED: MoRPHine SULFATE 4 MG/ML 1 ML CARP\\VIAL IV STA (12:02)
[2019-06-06 12:16] LABS: Appearance Urine Clear (Clear); Bilirubin Urine Negative (Negative); Blood Urine Negative (Negative); Color Urine Yellow; Glucose Urine UA Negative (Negative); Ketones Urine Negative (Negative); Leukocyte Esterase Urine Negative (Negative); Nitrite Urine Negative (Negative); Protein Urine Negative (Negative); Specific Gravity Urine 1.015 (1.000-1.030); Urobilinogen Urine Negative (Negative)
[2019-06-06] MEDS ORDERED: IOVERSOL 100ml IV PRN (12:36)
--- NOTE | 2019-06-06 13:03 | CT Scan Report ---
CT abd pelvis oral and IV con CLINICAL HISTORY: Upper abdominal pain, nausea, vomiting, diarrhea. COMPARISON STUDY: None TECHNIQUE: The patient was scanned in a dynamic helical fashion during intravenous administration of 94 cc of Optiray 320. A dose lowering technique was utilized adhering to the principles of ALARA. CT DOSE: 448.94 mGycm FINDINGS: Lower chest: The heart is normal in size and configuration, without pericardial effusion. The lung ba ses and pleural spaces are clear. Liver: The contrast-enhanced liver is normal in size, contour, and attenuation. There is no intrahepa tic biliary ductal dilatation. The hepatic veins and portal veins are patent. Gallbladder: Unremarkable. Spleen: Normal in size and attenuation. Pancreas: Unremarkable. Adrenal glands: Unremarkable. Kidneys: There is symmetric renal cortical enhancement. The kidneys are normal in size without hydron ephrosis. Bowel: There are no transition zones to indicate bowel obstruction. There is no evidence of acute div erticulitis. The appendix appears normal as visualized. Peritoneum: There is trace free pelvic fluid. There is no free intraperitoneal air. Vasculature: The abdominal aorta is normal in course and caliber. Adenopathy: There is mild aortic lymphadenopathy. Pelvic viscera: The bladder, and pelvic viscera are unremarkable. Skeletal structures: No destructive osseous lesions are seen. IMPRESSION: 1. No evidence of bowel obstruction. No evidence of free air 2. No evidence of acute appendicitis. No evidence of acute diverticulitis. 3. Mild nonspecific para-aortic lymphadenopathy Electronically signed by: Justin Mendoza M.D. 06/06/2019 1:01 PM
--- NOTE | 2019-06-06 14:24 | History & Physical Report ---
Date of Service June 06, 2019 Assessment & Plan (1) Acute gastroenteritis: Clear liquid diet. IV fluids. Parenteral antiemetics and narcotics as necessary. Pepcid IV. Carafate suspension orally. GI consultation. Stool studies pending Present on Admission?: Yes (2) Elevated lipase: Repeat lipase level tomorrow. Consult gastroenterology. No evidence of pancreatitis on CT scan Present on Admission?: Yes (3) DVT prophylaxis: Early ambulation Present on Admission?: Yes History of Present Illness Chief Complaint: Nausea, vomiting, diarrhea Primary Care Provider: NO PCP 24-year-old male with several days of epigastric pain, nausea, vomiting. Diarrhea started today. No hematemesis melena or hematochezia. He had some al cohol over the weekend but in a small amount. He is not an alcoholic. He drinks city water and has no recent antibiotic therapy. Lipase is minimally elevated. CT scan is negative except for some lymphadenopathy. I believe he has gastroenteritis and does not have acute pancreatitis. He will be placed on a clear liquid diet with IV fluids. IV Pepcid and oral Carafate suspension ordered. Stool studies ordered. Consult gastroenterology. Repeat lab studies tomorrow. Observation status. Allergies Allergy/AdvReac Type Severity Reaction Status Date / Time adhesive Allergy Unknown RASH Verified 06/06/19 09:15 Penicillins Allergy Unknown Unknown Verified 06/06/19 09:15 Home Medications Home Medications Medication Instructions Recorded Confirmed Type pantoprazole [Protonix] 20 mg PO HS 28 Days #28 tab 06/05/19 06/06/19 Rx Past Med/Surg History Social History Preferred Language: Belarusian Communication Ability: Effective Visual Impairment: No Limitations Hearing Ability: Normal marital status: Single Current Living Situation: Parent current occupational status: employed Feels Safe at Home: Yes Smoking Status: Current every day smoker Hx Alcohol Use: Yes Review of Systems Review of Systems: Constitutional-no fever or chills ENT-no blurred vision, no double vision, no epistaxis, no sore throat Respiratory-no cough, no wheezing, no shortness of breath Cardiac-no palpitations, no chest pain, no syncope GI-epigastric pain, nausea, vomiting, diarrhea. No melena hematemesis or hematochezia -no urinary retention, no urinary incontinence, no dysuria, no hematuria Musculoskeletal-no joint pain, no muscle tenderness Skin-no bruising, no rashes, no pruritus Neuro-no isolated weakness, no paresthesia, no weakness Psych-no depression, no anxiety Physical Exam Physical Exam: General-alert and oriented x3, no fevers, no chills HEENT-head atraumatic and normocephalic, TMs intact bilaterally, pupils equal and reactive to light, extraocular muscles intact Neck-no lymphadenopathy or thyromegaly, trachea midline Chest-clear to auscultation percussion. No rales wheezing or rhonchi Cardiac-regular rate and rhythm, normal S1 and S2, no murmurs Abdomen-normal bowel sounds, no hepatosplenomegaly. Epigastric tenderness. Nondistended. No rebound or guarding Extremities-no cyanosis, clubbing, or edema Neuro-cranial nerves II through XII intact, motor and sensory function within normal limits, strength symmetrical 5/5, no focal deficits Psych-normal affect, normal mood Results & Data Vital Signs (Past 12 Hours) Vital Signs Temp Pulse Pulse Resp BP BP Pulse Ox 06/06/19 14:00 63 134/66 99 06/06/19 13:30 72 12 98 06/06/19 13:00 63 10 L 134/75 100 06/06/19 12:52 65 21 138/78 99 06/06/19 12:00 67 140/96 96 06/06/19 11:52 77 14 150/95 H 100 06/06/19 11:30 57 L 11 L 133/85 100 06/06/19 11:00 57 L 14 124/77 100 06/06/19 10:53 58 L 13 121/78 100 06/06/19 10:31 63 18 99 06/06/19 10:29 72 14 114/79 100 06/06/19 10:25 73 16 114/79 100 06/06/19 10:00 57 L 99 06/06/19 09:30 100 06/06/19 09:00 100 06/06/19 08:48 58 L 14 100 06/06/19 08:32 53 L 12 152/84 H 99 06/06/19 08:26 36.4 C L 92 H 16 149/76 H 100 Laboratory Results 06/06/19 09:00 06/06/19 09:00 PG Care Time/CCT Total # of Minutes Spent Total Time Spent with Patient: Total time spent is greater than 50% in coordination of care (as documented) at patient's floor/unit and/or counseling patient:
[2019-06-06] MEDS ORDERED: ALUMINUM/MAGNESIUM SUSP 30 ML UDC PO PRN (18:30)
[2019-06-06] MEDS ORDERED: ACETAMINOPHEN 325 MG TAB PO PRN (18:30)
[2019-06-06] MEDS ORDERED: ONDANSETRON INJ 2 MG/ML 2 ML VIAL IV PRN (18:30)
[2019-06-06] MEDS ORDERED: MoRPHine SULFATE 2 MG/ML CARP IV PRN (18:30)
[2019-06-06] MEDS: SODIUM CHLORIDE 0.9% 1000ML 1,000 ML IV SCH (19:07)
[2019-06-06] MEDS: SUCRALFATE 1 GM/10 ML UDC PO SCH ×2 (19:26→21:13)
[2019-06-06] MEDS: FAMOTIDINE 20 MG in SYRINGE 3 ML IV SCH (21:13)
[2019-06-07] MEDS: SODIUM CHLORIDE 0.9% 1000ML 1,000 ML IV SCH (06:24)
[2019-06-07 08:00] LABS: Albumin Level 2.8 gm/dl (3.4-5.0); BUN Creatinine Ratio 15.2 (10-20); Calcium 8.1 mg/dl (8.5-10.1); Creatinine Clr Calc Pharmacy 138.8 ml/min; Est GFR (Non-African American) 120.8
[2019-06-07 08:05] LABS: Bilirubin,Total 0.6 mg/dl (0.2-1); Globulin 2.8 gm/dl (2.5-4.0); Total Protein 5.6 gm/dl (6.4-8.2)
[2019-06-07] MEDS: SUCRALFATE 1 GM/10 ML UDC PO SCH (08:09)
[2019-06-07] MEDS: FAMOTIDINE 20 MG in SYRINGE 3 ML IV SCH (08:09)
--- NOTE | 2019-06-07 09:05 | Gastrointestinal Consultation ---
Date of Consultation June 07, 2019 Assessment & Plan (1) Epigastric abdominal pain: (2) Elevated lipase: (3) Vomiting: Diff dx alcohol vs viral vs other. Lipase has normalized and symptoms have resolved. 1)Advance diet as tolerated. 2)No plan for invasive GI work up at this time. 3)Stable for discharge from GI perspective if cleared by medical team. Supervising Physician Co-Signing Physician Notes Agree with SAMMY Fitzpatrick as above Patient was discharged prior to my evaluation. History of Present Illness Reason for Consultation: N/V/D and elevated lipase Requesting Physician: Dr. Perez Attending Physician: Barrett Power History of Present Illness Patient is a 24 year-old male admitted after approximately three days of persistent epigastric pain with associated nausea and vomiting and diarrhea. Reports that he had consumed 3 beers with a friend prior to the onset of symptoms but denies any regular alcohol consumption and denies having exceeded three alcoholic beverages prior to the onset. On admission he was noted to have a mild leukocytosis and elevated H&H in the setting of the symptoms of n/v/d and an elevated lipase of 1123 which has resolved this morning and was noted to be only 90. Liver panel remained normal. CT abdomen was obtained and demonstrated a normal appearing liver and pancreas. With IV fluid resuscitation and resolution of the hyperlipasemia, he reports resolution of symptoms. States his pain level is 0/10 and he offers no other GI complaints at present. Allergies Allergy/AdvReac Type Severity Reaction Status Date / Time adhesive Allergy Unknown RASH Verified 06/06/19 09:15 Penicillins Allergy Unknown Unknown Verified 06/06/19 09:15 Home Medications Home Medications Medication Instructions Recorded Confirmed Type ondansetron 4 mg PO Q6H PRN #14 tab 06/07/19 Rx pantoprazole 40 mg PO DAILY #14 tab 06/07/19 Rx Patient History Medical History Elevated lipase (Acute) Acute gastroenteritis (Acute) ADHD (Chronic) Depression (Chronic) Surgical History History of knee surgery Family History Other No significant family history Social History Preferred Language: [place] Communication Ability: Effective Visual Impairment: No Limitations Hearing Ability: Normal 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 Beliefs That Will Affect Care: None marital status: Single Current Living Situation: Family current occupational status: employed Other Information That Helps Us Care for You: No Feels Safe at Home: Yes Safety Concerns: Feels Safe At This Time Smoking Status: Current every day smoker Tobacco Type: cigarettes and smokeless tobacco Do You Dip or Chew Tobacco: Yes Second Hand Exposure: No Tobacco Cessation Education Requested by Patient: No Hx Alcohol Use: Yes Alcohol type: beer and hard liquor Hx Substance Use: No Review of Systems Constitutional: no fever, no chills and no weight loss Eyes: no problem reported Ear, Nose, Mouth, Throat: as per Subjective / HPI Respiratory: no dyspnea and no dyspnea on exertion Cardiovascular: no chest pain and no palpitations Gastrointestinal: as per Subjective / HPI Musculoskeletal: no joint pain and no swelling Integumentary: no rash and no lesions Neurologic: no numbness and no paresthesia Psychiatric: no depression and no anxiety Endocrine: no fatigue Hematologic / Lymphatic: no easy bleeding and no easy bruising Physical Exam Constitutional: WD/WN, vitals as above Eyes: EOM intact bilaterally Neck: normal appearance Respiratory: normal respiratory effort, lungs clear to auscultation Cardiovascular: Rate/Rhythm: regular rate and regular rhythm Heart Sounds: no gallop and no murmur Gastrointestinal (Abdomen): normal bowel sounds, soft, nontender, no hepatosplenomegaly Inspection/Auscultation: abdomen not distended Musculoskeletal: Extremities: no cyanosis no lower extremity edema Skin: no rashes, warm and dry Neurologic: moves all extremities Psychiatric: A+Ox3, euthymic affect Results & Data Vital Signs (Past 12 Hours) Vital Signs Temp Pulse Resp BP BP Pulse Ox 06/07/19 07:43 36.4 C L 65 18 122/79 99 06/07/19 04:44 36.8 C 60 18 120/58 L 98 06/06/19 23:00 36.7 C 70 18 113/66 99 Laboratory Results Abnormal lab results 06/06/19 06/06/19 06/07/19 Range/Units 09:00 09:00 06:54 WBC 12.42 H (4.8-10.8) K/uL RBC 6.12 H (4.7-6.1) M/uL Hgb 18.1 H (14.0-18.0) g/dL Hct 53.1 H (42-52) % Immature Gran # (Auto) 0.03 H (0.00-0.02) K/uL Neut # (Auto) 9.74 H (1.4-6.5) K/uL [place]ima # (Auto) 0.71 H (0.11-0.59) K/uL Eos # (Auto) 0.53 H (0-0.5) K/uL Chloride 109 H (98-107) mmol/L Glucose 123 H (70-99) mg/dl Calcium 8.1 L (8.5-10.1) mg/dl AST 10 L 8 L (15-37) U/L ALT 10 L (12-78) U/L Total Protein 5.6 L D (6.4-8.2) gm/dl Albumin 2.8 L (3.4-5.0) gm/dl Lipase 1123 H (73-393) U/L PG Care Time/CCT Total # of Minutes Spent Total Time Spent with Patient: Total time spent is greater than 50% in coordination of care (as documented) at patient's floor/unit and/or counseling patient: (1) Vomiting Nausea presence: with nausea Vomiting Intractability: non-intractable Vomiting type: unspecified Qualified Code(s): R11.2 - Nausea with vomiting, unspecified
--- NOTE | 2019-06-12 13:58 | Discharge Summary ---
Date of Service date of admission - 06/06/19 date of discharge - 06/07/19 Admission HPI Per Admitting Provider 24-year-old male with several days of epigastric pain, nausea, vomiting. Diarrhea started today. No hematemesis melena or hematochezia. He had some alcohol over the weekend but in a small amount. He is not an alcoholic. He drinks city water and has no recent antibiotic therapy. Lipase is minimally elevated. CT scan is negative except for some lymphadenopathy. Principal Diagnosis likely viral gastroenteritis - resolved Discharge Exam Constitutional well developed, well nourished, + well hydrated and average body habitus; no acute distress ENMT external ear and nose normal, oropharynx normal Respiratory normal respiratory effort, lungs clear to auscultation Cardiovascular RRR, no murmur, no edema Heart Sounds: normal S1 and normal S2 Vessels: posterior tibial pulses present and dorsalis pedis pulses present Gastrointestinal (Abdomen) normal bowel sounds, soft, nontender, no hepatosplenomegaly Psychiatric A+Ox3, euthymic affect Discharge Data Allergies Allergy/AdvReac Type Severity Reaction Status Date / Time adhesive Allergy Unknown RASH Verified 06/06/19 09:15 Penicillins Allergy Unknown Unknown Verified 06/06/19 09:[address] [facility] Gastroenterology Ordered Studies CT abd/pelvis - IMPRESSION: 1. No evidence of bowel obstruction. No evidence of free air 2. No evidence of acute appendicitis. No evidence of acute diverticulitis. 3. Mild nonspecific para-aortic lymphadenopathy Hospital Course (1) Acute gastroenteritis: Likely viral in etiology. Symptoms improved/resolved during his brief stay. Was eating/drinking without difficulty prior to discharge. (2) Elevated lipase: Either he indeed had mild pancreatitis - perhaps viral in etiology (and/or due to alcohol consumption) - OR the lipase was elevated due to dehydration. Regardless his lipase normalized by hospital day #2, abdominal pain resolved, and he had no symptoms/signs of pancreatitis at discharge. Low fat diet recommended for 7-10 days post-discharge to be on safe side. (3) Intra-abdominal lymphadenopathy: Seen in the setting of his gastroenteritis. These lymph nodes may have been large due to his gastroenteritis (mesenteric adenitis). He did not report any symptoms of a chronic occult process such as lymphoma (no chronic fevers, sweats, weight loss, etc). [id number] it may be prudent to repeat the CT in 4-6 weeks to ensure resolution of the lymphadenopathy. Total Time Total Time Spent Total Time Spent (In Minutes): 25 Total Time Includes: Examination of the Patient, Discharge Planning and Medication Reconciliation Discharge Plan Discharge Items Patient Disposition: Home - Self-Care Reason For Visit: ACUTE GASTROENTERITIS Discharge Diagnosis: 1. gastroenteritis - likely due to viral infection - resolving. 2. mild pancreatitis - probably due to viral infection - resolved. Condition: Good Discharge Goals: Decrease discomfort, Diagnostic testing and Therapeutic intervention Activity: As commented below Activity Comment: take it easy the next 2 days then gradually increase activities Exercise/Sports: Gradually increase as tolerated Driving/Machine Use: No limitations Non-emergency contact: Primary Care Provider Call non-emergency contact if: you have any medication questions, your symptoms worsen, your pain is not controlled, your pain is worsening and your temperature is above 100.5 Follow-up/Referrals: Bolivar Hernandez PA-C [Primary Care Provider] - 06/13/19 8:45 am (Please, follow up with Bolivar Hernandez PA-C on TuesdayJune 13 at 8:45 am. *The office is located at [address] [place] [address] in [place]. If you need to change this appointment, call the office at [phone].) Diet: Low Fat Addtl Provider Instructions: You were treated for gastroenteritis which is typically a viral infection that leads to nausea, vomiting, diarrhea, and abdominal pain. Symptoms often last 2-3 days then resolve. You also had evidence of mild pancreatitis - the virus that caused your gastroenteritis may have caused the pancreatitis. Your lipase test (pancreas test) today was normal. Your CAT scan of the abdomen showed mildly swollen glands in the abdomen. These swollen glands were likely due to the virus that caused your symptoms. Your family doctor may want to repeat a CAT scan in 1-2 months to ensure those glands have gone back to normal size. Recommendations - 1. ondansetron tablets - 4 mg every 6 hours as needed for nausea/vomiting. 2. 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 gradually increase your diet over the next 2-3 days. Focus on good hydration. Avoid high fat foods, alcohol, caffeinated beverages (coffee, tea, soda), fast foods for about 7-10 days. Follow-up -- see separate section. Return to [facility] if -- * you have recurrent vomiting and/or diarrhea and you can't keep anything down * your abdominal pain returns * you have fevers over 100.5 degrees * any other concerns Prescriptions: New ondansetron 4 mg tablet,disintegrating 4 mg PO Q6H PRN (Reason: nausea and vomiting) Qty: 14 RF: 0 pantoprazole 40 mg tablet,delayed release (DR/EC) 40 mg PO DAILY Qty: 14 RF: 0 Stand-Alone Forms: My [facility], Work/School Release (Inpt) Krames/Other Patient Handouts: ED Gastroenteritis Viral Discharge Orders: Discharge Order (Routine); Ordered 06/07/19 Ordered By: Barrett Power Admission Data Admit Date/Time: 06/06/19 15:58 Attending Provider: Barrett Power Admit Provider: Glen Perez Primary Care Provider: Bolivar Hernandez Other Providers: Leigh Ann Child Service: Medical Other Interventions: Discharge Summary Assessment (RN) Last Done: 06/07/19 13:03 Pending Studies at Discharge: No DC Date/Time DO NOT enter until pt leaves facility: 06/07/19 14:17
== END 2019-06-07 14:17 | disposition home or self-care (01) ==
LOC: 2N 08:24 → ED 08:24 → SUATTDRO 15:58 → 2N 17:48
DX: Z88.8 Allergy status to other drugs, medicaments and biological substances; Z88.0 Allergy status to penicillin; R74.8 Abnormal levels of other serum enzymes; F17.210 Nicotine dependence, cigarettes, uncomplicated; K52.9 Noninfective gastroenteritis and colitis, unspecified